=== PATIENT | male | born 1990 | race Two or more races ===

== ENCOUNTER 2020-08-23 01:47 | Emergency (ER) | payer OTHER ==
[~2020-08-23] VITALS: Ht 182.9 cm; Wt 146.6 kg
[2020-08-23 01:49] VITALS: BP 133/86
[2020-08-23] MEDS ORDERED: SODIUM CHLORIDE FLUSH 10ML SYR IVF ONE (02:30)
--- NOTE | 2020-08-23 02:51 | NUR ---
PT RESTING IN GURNEY. SNORING CAN BE HEARD. PT EASILY AWOKE WITH VERBAL STIMULI.
== END 2020-08-23 03:06 | disposition home or self-care (01) ==
LOC: ED 02:00
DX: E11.65 Type 2 diabetes mellitus with hyperglycemia (principal)
CPT/HCPCS: 99281; 99282